=== PATIENT | male | born 1970 | race Caucasian/White ===

== ENCOUNTER 2018-05-23 20:48 | Emergency (ER) | payer BC ==
[~2018-05-23] VITALS: Ht 182.9 cm; Wt 104.3 kg
[2018-05-23 20:56] VITALS: BP 153/98
[2018-05-23] MEDS ORDERED: LACTATED RINGERS 1,000 ML ONE (21:12)
[2018-05-23] MEDS ORDERED: TORADOL ONE (21:13)
--- NOTE | 2018-05-23 21:15 | ER.PDOC ---
General Chief Complaint: Abdomen Pain Stated Complaint: R SIDE PAIN Time seen by MD: 21:13 Source: patient Exam Limitations: no limitations History of Present Illness Initial Comments Right flank pain Timing/Duration: 1/2 hour Severity/Quality: severe, sharpness Radiation: RLQ Associated Symptoms: denies symptoms Exacerbated by: nothing Relieved By: nothing Vital Signs First Vital Signs Date Time Temp Pulse Resp B/P (MAP) Pulse Ox O2 Delivery O2 Flow Rate FiO2 05/23/18 20:56 97.7 87 20 97.7 05/23/18 20:56 95 Room Air 05/23/18 20:56 153/98 (116) Last Vital Signs Date Time Temp Pulse Resp B/P (MAP) Pulse Ox O2 Delivery O2 Flow Rate FiO2 05/23/18 20:56 97.7 76 20 153/98 (116) 95 Room Air 97.7 Past Medical History Medical History: hypertension Social History Smoking: non-smoker Alcohol Use: none Drug Use: none Constitutional: no symptoms reported EENTM: no symptoms reported Respiratory: no symptoms reported Cardiovascular: no symptoms reported Gastrointestinal: see HPI Genitourinary: see HPI All Other Systems: Reviewed and Negative Physical Exam General Appearance: WD/WN, Moderate Distress (pain) HEENT: PERRL/EOMI, Normal ENT Inspection, TMs Normal, Pharynx Normal Neck: Non-Tender, Full Range of Motion, Supple, Normal Inspection Respiratory: chest non-tender, lungs clear, normal breath sounds, no respiratory distress, no accessory muscle use Cardiovascular: Normal Peripheral Pulses, Regular Rate, Rhythm, No Edema, No Gallop, No JVD, No Murmur Gastrointestinal: Normal Bowel Sounds, Soft, Tenderness (RLQ) Back: Normal Inspection, No CVA Tenderness, No Vertebral Tenderness Extremities: Normal Range of Motion, Non-Tender, Normal Inspection, No Pedal Edema, No Calf Tenderness, Normal Capillary Refill, Pelvis Stable 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 Left nephrolithiasis. 2. Additional findings as discussed above. Patient refused to be seen by Dr. Molina and requested to be transferred to [place]. Course Vitals & review Data Vital Sign - Last 24 Hours 10/18/18 10/18/18 10/18/18 20:56 20:56 20:56 Temp 97.7 97.8 97.7 97.7 97.8 97.7 Pulse 87 76 76 Resp 20 20 20 B/P (MAP) 153/98 (116) Pulse Ox 95 95 O2 Delivery Room Air Room Air Departure Time of Disposition: 22:41 Disposition: 02 XFER SHT-TRM HOSP Impression: Primary Impression: Ureteral calculus, right Condition: Stable Referrals: GOD[facility] PORTER [facility]IN[facility] POULTRY (PCP) PRIMARY CARE PROVIDER Comments Transfer to [facility] ED for Dr. Hardin Duration or Time Spent with Pa: 90 mins DELON GUIDRY MD May 23, 2018 21:15
[2018-05-23] MEDS: LACTATED RINGERS 1,000 ML IV STA (21:16)
[2018-05-23] MEDS: TORADOL IV STA (21:16)
[2018-05-23 21:17] LABS: BILIRUBIN,URINE NEGATIVE (NEGATIVE); UROBILINOGEN,URINE NORMAL (NEGATIVE)
--- NOTE | 2018-05-23 21:19 | NUR ---
CT PATIENT AMBULATE TO CT
[2018-05-23 21:31] LABS: APPEARANCE,URINE CLOUDY (CLEAR); UA COLOR DARK YELLOW (YELLOW)
[2018-05-23 21:34] LABS: BASOPHIL % 0.2 % (0.0-0.2); EOSINOPHIL # 0.3 10^3/uL (0.0-0.2); EOSINOPHIL % 2.6 % (0.0-5.0); LYMPHOCYTES # 2.1 10^3/uL (1.0-4.8); LYMPHOCYTES % 20.3 % (24.0-44.0); MEAN CELL HGB 29.2 pg (26-34); MEAN CELL HGB CONCENTRATION 32.8 g/dL (33-37); MEAN CORP VOLUME 89.1 fL (78-100); MEAN PLATELET VOLUME 8.5 fL (7.8-11.0); MONOCYTES # 0.7 10^3/uL (0.3-0.8); MONOCYTES % 6.5 % (5.0-12.0); NEUTROPHIL # 7.2 10^3/uL (1.8-7.7); NEUTROPHILS % 70.2 % (41.0-85.0); RED CELL DISTRIBUTION WIDTH 14.1 % (11.5-14.5); WHITE BLOOD CELL 10.2 10^3/uL (4.5-11.0)
[2018-05-23 21:44] LABS: CARBON DIOXIDE 24.5 mmol/L (20.0-32)
[2018-05-23 21:45] VITALS: BP 127/80
--- NOTE | 2018-05-23 22:03 | DIREP ---
PROCEDURE:CT ABDOMEN/PELVIS W/O CONTRAST [facility], CT, CT ABD/PELVIS W&W/O, 10/06/2015, 09:56 AM. INDICATIONS:Right flank pain TECHNIQUE:Axial images were created through the abdomen and pelvis without intravenous contrast material. No oral contrast was administered. Sagittal and coronal reconstructions were performed from source images. FINDINGS: LUNG BASES:No suspicious airspace consolidation or pleural effusion. LIVER:No suspicious focal hepatic lesion. BILIARY:The gallbladder is nondistended. No radiopaque calculi. No significant intrahepatic or extrahepatic biliary ductal dilatation. PANCREAS:No suspicious pancreatic abnormality. SPLEEN:The spleen is not significantly enlarged. No focal splenic lesion identified. ADRENALS:The adrenal glands are unremarkable. URINARY TRACT:A few small calculi are noted within the lower pole of the left kidney. No definite right intrarenal calculi are identified; however, there is an approximate 7 mm calculus within the distal right ureter residing several cm from the ureterovesicular junction. There is associated mild right hydroureteronephrosis. No left ureteral calculi or left hydronephrosis. Mild bilateral perinephric fat stranding. Suspect tiny bilateral renal cysts, including what appears to reflect a tiny hemorrhagic cyst on the left. AORTA/VASCULAR:No aneurysmal dilatation. RETROPERITONEUM:No suspicious retroperitoneal lymphadenopathy. BOWEL/MESENTERY:No evidence for small bowel obstruction. A few scattered colonic diverticuli are noted. No evidence to suggest acute diverticulitis. Normal appendix. No free air. ABDOMINAL WALL:No significant hernia. PELVIC ORGANS:Urinary bladder is essentially empty, limiting evaluation. The prostate is not enlarged. No free fluid. BONES:Postoperative changes of the lower lumbar spine with laminectomy defect and posterior spinal fusion hardware. No acute abnormality. CONCLUSION: 1. Approximate 7 mm calculus within the distal right ureter with associated mild right hydroureteronephrosis. Left nephrolithiasis. 2. Additional findings as discussed above. Dictated by: Gilbert Howe M.D. On 05/23/2018 at 09:52 PM
[2018-05-23] MEDS ORDERED: DEMEROL IV STA (22:32)
[2018-05-23] MEDS ORDERED: DILAUDID ONE (22:37)
[2018-05-23 22:45] VITALS: BP 134/94
[2018-05-23] MEDS: DILAUDID IV STA (22:48)
--- NOTE | 2018-05-23 22:48 | NUR ---
IV IV REMOVED FROM RT FOREARM CATHETER WAS ALL INTACT. APPLIED PRESSURE UNTIL NO FURHTER BLEEDING. BAND AID APPLIED.
[2018-05-23 23:36] VITALS: BP 134/94
--- NOTE | 2018-05-23 23:36 | NUR ---
TRANSFER CALLED REPORT TO JOSEPH AT [facility].
== END 2018-05-23 23:17 | disposition short-term general hospital (02) ==
LOC: ER 20:48
DX: N13.2 Hydronephrosis with renal and ureteral calculous obstruction (principal); I10 Essential (primary) hypertension
CPT/HCPCS: 36415; 74176; 80053; 81000; 85025; 85610; 85730; 96374; 96375; 99285; J1885; J7120

== ENCOUNTER 2018-05-29 09:31 | Emergency (ER) | payer BC ==
[~2018-05-29] VITALS: Ht 182.9 cm; Wt 104.3 kg
[2018-05-29] MEDS ORDERED: NS 1000ML 1,000 ML ONE ×2 (09:46→11:29)
--- NOTE | 2018-05-29 09:50 | NUR ---
ARRIVAL PATIENT ARRIVED TO ED4 VIA W/C WITH SPOUSE, C/O OF LEFT SIDE ABD PAIN TODAY, WAS RECENTLY IN [facility] FOR KIDNEY STON[facility], HAD A STENT PLACE AND REMOVED. WAS ON BACTRIM AND HAS ONE DOSE LEFT. PAIN IS SEVERE, CAME TO THE ED FOR FURTHER EVAL.
[2018-05-29] MEDS ORDERED: MORPHINE SULFATE IV STA (09:52)
[2018-05-29 09:53] VITALS: BP 125/74
[2018-05-29] MEDS ORDERED: MORPHINE SULFATE ONE (09:53)
[2018-05-29] MEDS ORDERED: TORADOL ONE (09:53)
[2018-05-29] MEDS ORDERED: ZOFRAN ONE (09:53)
[2018-05-29] MEDS ORDERED: ZOFRAN IV STA (10:02)
[2018-05-29] MEDS: TORADOL IV PRN ×2 (10:02→11:08)
[2018-05-29] MEDS ORDERED: NS 1000ML 1,000 ML IV STA ×2 (10:05→11:33)
[2018-05-29 10:07] LABS: BASOPHIL % 0.3 % (0.0-0.2); EOSINOPHIL # 0.1 10^3/uL (0.0-0.2); EOSINOPHIL % 0.9 % (0.0-5.0); HEMOGLOBIN 13.9 g/dL (13.9-16.3); LYMPHOCYTES # 1.7 10^3/uL (1.0-4.8); LYMPHOCYTES % 12.4 % (24.0-44.0); MEAN CELL HGB 29.7 pg (26-34); MEAN CELL HGB CONCENTRATION 33.9 g/dL (33-37); MEAN CORP VOLUME 87.6 fL (78-100); MEAN PLATELET VOLUME 8.6 fL (7.8-11.0); MONOCYTES # 1.6 10^3/uL (0.3-0.8); MONOCYTES % 11.8 % (5.0-12.0); NEUTROPHIL # 10.2 10^3/uL (1.8-7.7); NEUTROPHILS % 74.2 % (41.0-85.0); RED CELL DISTRIBUTION WIDTH 13.4 % (11.5-14.5); WHITE BLOOD CELL 13.8 10^3/uL (4.5-11.0)
[2018-05-29 10:12] VITALS: BP 124/85
[2018-05-29 10:22] LABS: CALCIUM 9.3 mg/dL (8.4-10.5)
--- NOTE | 2018-05-29 10:22 | NUR ---
CT PT TAKEN TO CT
--- NOTE | 2018-05-29 10:36 | NUR ---
CT PT BACK FROM CT
[2018-05-29] MEDS ORDERED: NORCO 10MG PO STA (10:53)
[2018-05-29] MEDS ORDERED: NITROSTAT SL STA (10:53)
--- NOTE | 2018-05-29 11:01 | DIREP ---
PROCEDURE:CT ABDOMEN/PELVIS W/O CONTRAST COMPARISON:[facility], CT, CT ABD/PELVIS W/O, 05/23/2018, 09:20 PM. INDICATIONS:nleft flank pain, hx renal calculi TECHNIQUE:Axial images were created through the abdomen and pelvis without intravenous contrast material. No oral contrast was administered. Sagittal and coronal reconstructions were performed from source images. FINDINGS: LUNG BASES:Minimal dependent atelectasis. No suspicious airspace consolidation or pleural effusion. LIVER:No suspicious focal hepatic lesion. BILIARY:The gallbladder is nondistended. No radiopaque calculi. No significant intrahepatic or extrahepatic biliary ductal dilatation. PANCREAS:No suspicious pancreatic abnormality. SPLEEN:The spleen is not significantly enlarged. No focal splenic lesion identified. ADRENALS:The adrenal glands are unremarkable. URINARY TRACT:Left nephrolithiasis with the largest calculus measuring up to approximately 7 mm. No definite right nephrolithiasis. No ureteral or bladder calculi. Tiny hemorrhagic left renal cyst. Bilateral perinephric fat stranding. AORTA/VASCULAR:No aneurysmal dilatation. RETROPERITONEUM:No suspicious retroperitoneal lymphadenopathy. BOWEL/MESENTERY:No evidence for small bowel obstruction. A few scattered colonic diverticuli are noted without evidence to suggest acute diverticulitis. Normal appendix. No free air. ABDOMINAL WALL:No significant hernia. PELVIC ORGANS:Urinary bladder is nondistended. Prostate is not enlarged. No free fluid. BONES:Postoperative changes of the lower lumbar spine with laminectomy defect and posterior spinal fusion hardware. No acute abnormality. CONCLUSION: 1. No acute intra-abdominal abnormality. Left nephrolithiasis without ureteral or bladder calculi. No hydronephrosis. A few scattered colonic diverticuli are noted without evidence to suggest acute diverticulitis. Normal appendix. 2. Additional findings as discussed above. Dictated by: Gilbert Howe M.D. On 05/29/2018 at 10:53 AM
--- NOTE | 2018-05-29 11:15 | ER.PDOC ---
General Chief Complaint: Male Stated Complaint: BACK PAIN Time seen by MD: 11:00 Source: patient Exam Limitations: no limitations History of Present Illness Timing/Duration: 1/2 hour Severity/Quality: moderate, aching, cramping Radiation: groin Associated Symptoms: diaphoresis, nausea/vomiting Exacerbated by: nothing Relieved By: nothing Allergies: Coded Allergies: No Known Allergies (Unverified , 05/29/18) Vital Signs First Vital Signs Date Time Temp Pulse Resp B/P (MAP) Pulse Ox O2 Delivery O2 Flow Rate FiO2 05/23/18 23:36 73 05/29/18 09:49 99.4 22 99.4 05/29/18 09:50 97 Room Air 05/29/18 09:53 125/74 (91) 05/29/18 10:12 2.00 Last Vital Signs Date Time Temp Pulse Resp B/P (MAP) Pulse Ox O2 Delivery O2 Flow Rate FiO2 05/29/18 10:12 99.4 102 22 124/85 (98) 92 Nasal Canula 2.00 99.4 Past Medical History Medical History: cancer, other Surgical History: renal, other Social History Smoking: non-smoker, cigarettes Alcohol Use: occassionally Drug Use: none Reviewed Nursing Reviewed: Vital Signs, Abn. Noted All Other Systems: Reviewed and Negative Physical Exam General Appearance: No Apparent Distress, WD/WN HEENT: PERRL/EOMI, Normal ENT Inspection, TMs Normal, Pharynx Normal Neck: Non-Tender, Full Range of Motion, Supple, Normal Inspection Respiratory: chest non-tender, lungs clear, normal breath sounds, no respiratory distress, no accessory muscle use Cardiovascular: Normal Peripheral Pulses, Regular Rate, Rhythm, No Edema, No Gallop, No JVD, No Murmur Gastrointestinal: Tenderness Back: CVA Tenderness (L) Extremities: Normal Range of Motion, Non-Tender, Normal Inspection, No Pedal Edema, No Calf Tenderness, Normal Capillary Refill, Pelvis Stable 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, No Motor/Sensory Deficits, Alert, Normal Mood/Affect, Oriented x 3 Skin: Normal Color, Warm/Dry Lymphatic: No Adenopathy Results/Orders Results/Orders Laboratory Tests Test 05/29/18 10:00 White Blood Count 13.8 10^3/uL (4.5-11.0) Red Blood Count 4.68 10^6/uL (4.50-5.90) Hemoglobin 13.9 g/dL (13.9-16.3) Hematocrit 41.0 % (37.0-53.0) Mean Corpuscular Volume 87.6 fL (78-100) Mean Corpuscular Hemoglobin 29.7 pg (26-34) Mean Corpuscular Hemoglobin Concent 33.9 g/dL (33-37) Red Cell Distribution Width 13.4 % (11.5-14.5) Platelet Count 323 10^3/uL (150-400) Mean Platelet Volume 8.6 fL (7.8-11.0) Neutrophils (%) (Auto) 74.2 % (41.0-85.0) Lymphocytes (%) (Auto) 12.4 % (24.0-44.0) Monocytes (%) (Auto) 11.8 % (5.0-12.0) Neutrophils # (Auto) 10.2 10^3/uL (1.8-7.7) Lymphocytes # (Auto) 1.7 10^3/uL (1.0-4.8) Monocytes # (Auto) 1.6 10^3/uL (0.3-0.8) Absolute Immature Granulocyte (auto 0.06 10^3 u/L (0-2) Eosinophils % 0.9 % (0.0-5.0) Basophils % 0.3 % (0.0-0.2) Basophils # 0.0 10^3/uL (0.0-0.1) Eosinophil Count 0.1 10^3/uL (0.0-0.2) Prothrombin Time 10.9 SEC (9.8-11.9) Prothrombin Time INR (Non-Therap) 1.1 Activated Partial Thromboplast Time 25.0 SEC (24.67-30.72) Sodium Level 135 mmol/L (132-145) Potassium Level 4.2 mmol/L (3.6-5.2) Chloride Level 98.0 mmol/L (96-109) Carbon Dioxide Level 26.0 mmol/L (20.0-32) Anion Gap 15.2 Blood Urea Nitrogen 21 mg/dL (7-18) Creatinine 1.73 mg/dL (0.59-1.40) Estimated GFR () 51.7 (>/=60) BUN/Creatinine Ratio 12.0 Glucose Level 115 mg/dL (70-110) Calcium Level 9.3 mg/dL (8.4-10.5) Total Bilirubin 0.7 mg/dL (0.2-1.0) Aspartate Amino Transf (AST/SGOT) 15 U/L (0-35) Alanine Aminotransferase (ALT/SGPT) 32 U/L (12-78) Alkaline Phosphatase 103 U/L (50-136) Total Protein 7.8 g/dL (6.4-8.2) Albumin 3.6 g/dL (3.4-5.0) Globulin 4.2 Amylase Level 32 U/L (25-115) Lipase 88 U/L (114-286) Percent Immature Gran (Cell Imm) 0.40 % (0.00-0.50) Helicobacter pylori Screen NEGATIVE (NEGATIVE) Administered Medications Medications (Trade) Dose Ordered Sig/Pedrito Route PRN Reason Start Time Stop Time Status Last Admin Dose Admin Morphine Sulfate (Morphine Sulfate) 4 mg STAT STAT IV 05/29/18 09:52 05/29/18 09:54 DC 05/29/18 10:05 Ketorolac Tromethamine (Toradol) 30 mg Q6HR PRN IV PAIN 05/29/18 10:00 06/03/18 09:59 05/29/18 10:02 Ondansetron HCl (Zofran) 4 mg STAT STAT IV 05/29/18 10:02 05/29/18 10:03 DC 05/29/18 10:00 Sodium Chloride 1,000 ml @ 1,200 mls/hr Q50M STAT IV 05/29/18 10:05 05/29/18 10:54 DC 05/29/18 10:00 Course Sepsis Screening Results: Posi: POSITIVE SEPSIS RISK Vitals & review Data Vital Sign - Last 24 Hours 05/29/18 05/29/18 05/29/18 05/29/18 09:49 09:50 09:53 10:12 Temp 99.4 99.4 99.4 99.4 99.4 99.4 99.4 99.4 Pulse 106 106 106 102 Resp 22 22 22 22 B/P (MAP) 125/74 (91) 124/85 (98) Pulse Ox 97 97 92 O2 Delivery Room Air Room Air Nasal Canula O2 Flow Rate 2.00 Laboratory Tests Test 05/29/18 10:00 White Blood Count 13.8 10^3/uL Red Blood Count 4.68 10^6/uL Hemoglobin 13.9 g/dL Hematocrit 41.0 % Mean Corpuscular Volume 87.6 fL Mean Corpuscular Hemoglobin 29.7 pg Mean Corpuscular Hemoglobin Concent 33.9 g/dL Red Cell Distribution Width 13.4 % Platelet Count 323 10^3/uL Mean Platelet Volume 8.6 fL Neutrophils (%) (Auto) 74.2 % Lymphocytes (%) (Auto) 12.4 % Monocytes (%) (Auto) 11.8 % Neutrophils # (Auto) 10.2 10^3/uL Lymphocytes # (Auto) 1.7 10^3/uL Monocytes # (Auto) 1.6 10^3/uL Absolute Immature Granulocyte (auto 0.06 10^3 u/L Eosinophils % 0.9 % Basophils % 0.3 % Basophils # 0.0 10^3/uL Eosinophil Count 0.1 10^3/uL Prothrombin Time 10.9 SEC Prothrombin Time INR (Non-Therap) 1.1 Activated Partial Thromboplast Time 25.0 SEC Sodium Level 135 mmol/L Potassium Level 4.2 mmol/L Chloride Level 98.0 mmol/L Carbon Dioxide Level 26.0 mmol/L Anion Gap 15.2 Blood Urea Nitrogen 21 mg/dL Creatinine 1.73 mg/dL Estimated GFR () 51.7 BUN/Creatinine Ratio 12.0 Glucose Level 115 mg/dL Calcium Level 9.3 mg/dL Total Bilirubin 0.7 mg/dL Aspartate Amino Transf (AST/SGOT) 15 U/L Alanine Aminotransferase (ALT/SGPT) 32 U/L Alkaline Phosphatase 103 U/L Total Protein 7.8 g/dL Albumin 3.6 g/dL Globulin 4.2 Amylase Level 32 U/L Lipase 88 U/L Percent Immature Gran (Cell Imm) 0.40 % Helicobacter pylori Screen NEGATIVE Current Medications Medications (Trade) Dose Ordered Sig/Pedrito PRN Reason Start Time Stop Time Status Last Admin Ketorolac Tromethamine (Toradol) 30 mg Q6HR PRN PAIN 05/29/18 10:00 06/03/18 09:59 05/29/18 10:02 Departure Time of Disposition: 12:00 Disposition: 01 HOME, SELF-CARE Impression: Primary Impression: Ureter colic Condition: Improved Referrals: GODWIN PORTER [employer] (PCP) PRIMARY CARE PROVIDER Duration or Time Spent with Pa: 2 hrs LISS WEN MD May 29, 2018 11:15
[2018-05-29 11:41] VITALS: BP 83/49
--- NOTE | 2018-05-29 11:42 | NUR ---
DISCHARGE WENT TO PATIENT'S ROOM FOR DISCHARGE BLOOD PRESSURE LOW, DOCTOR BEHZAD NOTIFIED, NEW ORDER RECEIVED.
[2018-05-29 12:00] LABS: BILIRUBIN,URINE NEGATIVE (NEGATIVE)
[2018-05-29 12:01] LABS: APPEARANCE,URINE CLEAR (CLEAR); UA COLOR YELLOW (YELLOW)
[2018-05-29 12:06] VITALS: BP 96/61
--- NOTE | 2018-05-29 12:06 | NUR ---
IV 20G IV D/C'D TIP INTACT TO LEFT FOREARM, NO SIGN OF INFILTRATION NOTED
[2018-05-29 12:07] VITALS: BP 96/61
[2018-05-29 12:13] LABS: WHITE BLOOD CELL CASTS, URINE 0-1 (NONE SEEN)
== END 2018-05-29 12:05 | disposition home or self-care (01) ==
LOC: ER 09:31
DX: N23 Unspecified renal colic (principal); R11.2 Nausea with vomiting, unspecified; F17.210 Nicotine dependence, cigarettes, uncomplicated; Z85.9 Personal history of malignant neoplasm, unspecified
CPT/HCPCS: 36415; 74176; 80053; 81000; 82150; 83690; 85025; 85610; 85730; 86677; 87086; 96361; 96374; 96375; 99285; J1885; J2270; J2405; J7030 ×2